=== PATIENT | female | born 1985 | race Caucasian/White ===

== ENCOUNTER 2016-07-10 18:46 | Emergency (ER) | payer MEDICAID, OTHER ==
--- NOTE | 2016-07-10 19:22 | Emergency Department Report ---
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 PT states she has seen guardian family member for this and has not had any known complications. PT states she is 12 weeks . - ROS Review of Systems: + abd cramps + vaginal bleeding - Exam Physical Exam: pt is alert and appropriate gcs 15 pt anxious in triage no gu exam done at this time MSE screening note: Focused history and physical exam performed. Due to findings the following was ordered: labs, us ED Disposition for MSE Condition: Stable
[2016-07-10 20:10] LABS: Basophils % (Auto) 0.5 % (0.0-1.8); Eosinophils % (Auto) 0.5 % (0.0-4.3); Hematocrit 36.3 % (30.3-42.9); Hemoglobin 12.3 gm/dl (10.1-14.3); Mean Corpuscular HGB Conc 34 % (30-34); Mean Corpuscular Hemoglobin 28 pg (28-32); Mean Corpuscular Volume 84 fl (79-97); Platelet Count 340 K/mm3 (140-440); Red Blood Count 4.35 M/mm3 (3.65-5.03); Red Cell Distribution Width 13.9 % (13.2-15.2); White Blood Count 10.3 K/mm3 (4.5-11.0)
[2016-07-10 20:20] LABS: INR 0.96 (0.87-1.13)
[2016-07-10 20:33] LABS: Alanine Aminotransferase 11 units/L (7-56); Albumin 3.7 g/dL (3.9-5); Albumin/Globulin Ratio 1.1 %; Alkaline Phosphatase 130 units/L (35-129); Anion Gap 16 mmol/L; Bilirubin,Total 0.2 mg/dL (0.1-1.2); Blood Urea Nitrogen 4 mg/dL (7-17); Carbon Dioxide 22 mmol/L (22-30); Chloride 100.7 mmol/L (98-107); Glucose 88 mg/dL (65-100); Potassium 3.5 mmol/L (3.6-5.0); Sodium 135 mmol/L (137-145); Total Protein 7.1 g/dL (6.3-8.2)
--- NOTE | 2016-07-11 00:14 | Ultrasound Report ---
FINAL REPORT EXAM: US OB \T\lt; = 14 WEEKS FETUS HISTORY: bleeding COMPARISON: None available. TECHNIQUE: Several real-time grayscale and color Doppler images were obtained. Transabdominal and transvaginal exam. FINDINGS: The uterus measures 12.1 x 7.1 x 6.9 centimeters. Single live IUP. Estimated gestational age 11 weeks 4 days. Estimated delivery date January 25, 2017. heart rate 171 beats per minute. Small subchorionic hemorrhage measuring 2.0 x 0.3 x 0.5 centimeters. The right ovary measures 3.1 x 1.8 x 1.9 centimeters. Within the right ovary, there is a simple appearing cystic structure measuring 1.7 x 1.2 centimeters. This may reflect corpus luteum. The left ovary measures 2.0 x 1.5 x 1.8 centimeters. There is gross vascular flow to the ovaries. No adnexal masses are demonstrated. IMPRESSION: Single live IUP. Estimated gestational age 11 weeks 4 days. Estimated delivery date January 25, 2017. Small subchorionic hemorrhage. 1.7 centimeter right ovarian cystic structure which may reflect corpus luteal cyst. Ovaries are otherwise unremarkable.
--- NOTE | 2016-07-11 04:48 | Emergency Department Report ---
ED Female HPI - General Chief complaint: Vaginal Bleeding Stated complaint: 12 WKS /HEAVY BLEEDING Time Seen by Provider: 07/10/16 19:18 Source: patient Mode of arrival: Ambulatory Limitations: No Limitations - History of Present Illness Initial comments: 30-year-old female presents to the hospital approximately 12 weeks with complaints of heavy vaginal bleeding started about 6 PM. Patient had a gush of blood while shopping and states she's had greater than one pad per hour. She complains of suprapubic pressure without cramping. Patient has had care and follows with [facility]. Patient has had bleeding early in her and denies recent sexual activity. Bleeding has improved since arrival. Patient states she is taking antibiotics a toothache. - Related Data Home Medications Medication Instructions Recorded Confirmed Last Taken Unobtainable 07/11/16 07/11/16 Unknown Allergies Allergy/AdvReac Type Severity Reaction Status Date / Time epidural Allergy Mild Itching Uncoded 07/10/16 19:29 ED Review of Systems ROS: Stated complaint: 12 WKS /HEAVY BLEEDING Other details as noted in HPI Comment: All other systems reviewed and negative Other: Constitutional: No fevers chills Eyes: No eye pain visual changes ENT: No ear pain or throat pain Neck: Denies pain Respiratory: Denies cough wheezing shortness of breath Cardiovascular: Denies chest pain, palpitations, syncope GI: Denies abdominal pain, nausea, vomiting, diarrhea : Denies dysuria Musculoskeletal: Denies back pain, joint swelling Skin: Denies rash, lesions, erythema Neurologic: Denies headache, numbness, weakness Psychiatric: Denies suicidal ideation, hallucinations ED Past Medical Hx - Past Medical History Previous Medical History?: No - Surgical History Past Surgical History?: Yes Hx Cholecystectomy: Yes Additional Surgical History: , left arm - Social History Smoking Status: Never Smoker Substance Use Type: None - Medications Home Medications: Home Medications Medication Instructions Recorded Confirmed Last Taken Type Unobtainable 07/11/16 07/11/16 Unknown History ED Physical Exam - General Limitations: No Limitations - Other Other exam information: General: No limitations, patient is alert in no acute distress Head exam: Atraumatic, normocephalic Eyes exam: Normal appearance ENT: Moist mucous membrane Neck exam: Normal inspection, full range of motion, no meningismus nontender Respiratory exam: Clear to auscultation bilateral, no wheezes, rales, crackles Cardiovascular: Normal rate and rhythm, normal heart sounds Abdomen: Soft, nondistended, and nontender, with normal bowel sounds, no rebound, or guarding Extremity: Full range of motion normal inspection no deformity Back: Normal Inspection, full range of motion, no tenderness Neurologic: Alert, oriented x3, cranial nerves intact, no motor or sensory deficit Psychiatric: normal affect, normal mood Skin: Warm, dry, intact ED Course Vital Signs 07/11/16 07/11/16 07/11/16 03:13 03:14 03:15 Pulse Rate 94 H 91 H 75 Respiratory 19 17 Rate Blood Pressure 132/74 O2 Sat by Pulse Oximetry 07/11/16 07/11/16 03:30 04:00 Pulse Rate 83 88 Respiratory 18 18 Rate Blood Pressure 120/81 134/85 O2 Sat by Pulse 100 100 Oximetry - Reevaluation(s) Reevaluation #1: 07/11/16 04:50 Patient asymptomatic at this time ED Medical Decision Making - Lab Data Result diagrams: 07/10/16 19:37 07/10/16 19:37 Lab Results 07/10/16 07/10/16 07/10/16 Range/Units 19:37 19:37 19:37 WBC 10.3 (4.5-11.0) K/mm3 RBC 4.35 (3.65-5.03) M/mm3 Hgb 12.3 (10.1-14.3) gm/dl Hct 36.3 (30.3-42.9) % MCV 84 (79-97) fl MCH 28 (28-32) pg MCHC 34 (30-34) % RDW 13.9 (13.2-15.2) % Plt Count 340 (140-440) K/mm3 Lymph % (Auto) 24.4 (13.4-35.0) % Ocean % (Auto) 3.8 (0.0-7.3) % Eos % (Auto) 0.5 (0.0-4.3) % Baso % (Auto) 0.5 (0.0-1.8) % Lymph # 2.5 (1.2-5.4) K/mm3 Ocean # 0.4 (0.0-0.8) K/mm3 Eos # 0.1 (0.0-0.4) K/mm3 Baso # 0.1 (0.0-0.1) K/mm3 Seg Neutrophils % 70.8 H (40.0-70.0) % Seg Neutrophils # 7.3 (1.8-7.7) K/mm3 PT 12.7 (12.2-14.9) Sec. INR 0.96 (0.87-1.13) Sodium 135 L (137-145) mmol/L Potassium 3.5 L (3.6-5.0) mmol/L Chloride 100.7 (98-107) mmol/L Carbon Dioxide 22 (22-30) mmol/L Anion Gap 16 mmol/L BUN 4 L (7-17) mg/dL Creatinine 0.4 L (0.7-1.2) mg/dL Estimated GFR > 60 ml/min BUN/Creatinine Ratio 10.00 % Glucose 88 (65-100) mg/dL Calcium 9.0 (8.4-10.2) mg/dL Total Bilirubin 0.2 (0.1-1.2) mg/dL AST 13 (5-40) units/L ALT 11 (7-56) units/L Alkaline Phosphatase 130 H (35-129) units/L Total Protein 7.1 (6.3-8.2) g/dL Albumin 3.7 L (3.9-5) g/dL Albumin/Globulin Ratio 1.1 % HCG, Quant (0-4) mIU/mL Blood Type 07/10/16 07/10/16 Range/Units 19:37 19:37 WBC (4.5-11.0) K/mm3 RBC (3.65-5.03) M/mm3 Hgb (10.1-14.3) gm/dl Hct (30.3-42.9) % MCV (79-97) fl MCH (28-32) pg MCHC (30-34) % RDW (13.2-15.2) % Plt Count (140-440) K/mm3 Lymph % (Auto) (13.4-35.0) % Ocean % (Auto) (0.0-7.3) % Eos % (Auto) (0.0-4.3) % Baso % (Auto) (0.0-1.8) % Lymph # (1.2-5.4) K/mm3 Ocean # (0.0-0.8) K/mm3 Eos # (0.0-0.4) K/mm3 Baso # (0.0-0.1) K/mm3 Seg Neutrophils % (40.0-70.0) % Seg Neutrophils # (1.8-7.7) K/mm3 PT (12.2-14.9) Sec. INR (0.87-1.13) Sodium (137-145) mmol/L Potassium (3.6-5.0) mmol/L Chloride (98-107) mmol/L Carbon Dioxide (22-30) mmol/L Anion Gap mmol/L BUN (7-17) mg/dL Creatinine (0.7-1.2) mg/dL Estimated GFR ml/min BUN/Creatinine Ratio % Glucose (65-100) mg/dL Calcium (8.4-10.2) mg/dL Total Bilirubin (0.1-1.2) mg/dL AST (5-40) units/L ALT (7-56) units/L Alkaline Phosphatase (35-129) units/L Total Protein (6.3-8.2) g/dL Albumin (3.9-5) g/dL Albumin/Globulin Ratio % HCG, Quant 72643 H (0-4) mIU/mL Blood Type B POSITIVE - Radiology Data Radiology results: report reviewed (transvaginal/pelvic ultrasound: Single living IUP 11 weeks 4 days. Small subchorionic hemorrhage. 1.7cm right ovarian cysts reflect corpus luteum cyst) - Medical Decision Making 1 potassium Once potassium tablet given for mild hypokalemia. Patient states bleeding has improved. No signs of anemia or vital sign instability. Patient does not require RhoGAM's blood type is B+. Follow-up with her [facility] doctor. She is provided a copy of her ultrasound and states she has an appointment today - Differential Diagnosis plan miscarriage, incomplete miscarriage, subchorionic hemorrhage Critical Care Time: No Critical care attestation.: If time is entered above; I have spent that time in minutes in the direct care of this critically ill patient, excluding procedure time. ED Disposition Clinical Impression: Threatened miscarriage in early , Subchorionic hemorrhage, Hypokalemia Disposition: DISCHARGED TO HOME OR SELFCARE Is pt being admited?: No Does the pt Need Aspirin: No Condition: Stable Instructions: Threatened Miscarriage (ED), Hypokalemia (ED) Additional Instructions: Follow-up with the [facility] doctor today as scheduled. Return if symptoms worsen as indicated by discharge instructions. Take the copy of the ultrasound to your doctor visit. 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
[2016-07-11] MEDS ORDERED: K-DUR PO ONE (04:52)
[2016-07-11 05:13] VITALS: BP 135/70
== END 2016-07-11 05:24 | disposition home or self-care (01) ==
LOC: ED 18:46
DX: O20.0 Threatened abortion (principal); Z3A.12 12 weeks gestation of pregnancy; E87.6 Hypokalemia; Z90.49 Acquired absence of other specified parts of digestive tract; Z88.8 Allergy status to other drugs, medicaments and biological substances
CPT/HCPCS: 36415; 76801; 76817; 80053; 84702; 85025; 85610; 86900; 86901